=== PATIENT | female | born 1985 | race Caucasian/White ===

== ENCOUNTER 2020-12-30 06:33 | Day surgery (SDC) | payer OTHER ==
[~2020-12-30] VITALS: Ht 160 cm; Wt 106.8 kg
[~2020-12-30 06:33] MED LIST: CITA20 PO; CYCL10 PO; IBUP600 PO; Norco 5-325 Ta1 EACH PO; ZYRTEC10 M2 PO
[2020-12-30] MEDS ORDERED: ALDACTONE100 MG PO (07:22)
--- NOTE | 2020-12-30 07:35 | NUR ---
SECOND IV STARTED BY JERRY STUDENT NURSE. Ambulatory in Day Surgery History, Chart, Medications and Allergies reviewed before start of procedure.Patient confirms NPO status and agrees with scheduled surgery. Patient reports completing Chlorhexadine shower X2 prior to admission to hospital.Surgical site prepped with 2% Chlorhexidine cloth wipe. Lungs clear T/O to Auscultation.
--- NOTE | 2020-12-30 16:58 | NUR ---
SHIFT SUMMARY PT A&OX4, VSS/RA, S/P MELISSA TOTAL LAP HYSTER, 4 DERMABOND LAP SITES, CDI, ABD BINDER ON. PAIN MANAGED WITH 5 MG PERCOCET & TORADOL. DUSTIN PO CLEAR LIQUID DIET, DENIES N&V. AMBULATING HALLWAYS, UP TO CHAIR. VELASCO PATENT & DRAINING YELLOW URINE, STAT LOCK ON, OFF FLOOR. WILL REPORT TO ONCOMING NOC RN.
--- NOTE | 2020-12-31 03:48 | NUR ---
HAIRCUTTER SUMMARY A/OX4, AMBULATING HALLWAY THIS EVENING. ABD BINDER IN PLACE, SURGICAL INCISIONS C/D WITHOUT SIGNS OF REDNESS OR DISCHARGE. SCANT AMOUNT OF VAGINAL BLEEDING IN LUCIA PAD. PLAN TO D/C VELASCO AT 0500. VSS, NO ACUTE CHANGES AT THIS TIME. BED IN LOWEST POSITION WITH CALL LIGHT IN REACH. WILL CONTINUE TO MONITOR AND REPORT TO ONCOMING RN.
[2020-12-31 04:55] LABS: BASOPHILS ABSOLUTE AUTO 0.02 K/mm3 (0.00-0.23); BASOPHILS PERCENT AUTO 0 % (0-2); EOSINOPHILS ABSOLUTE AUTO 0.01 K/mm3 (0.00-0.68); EOSINOPHILS PERCENT AUTO 0 % (0-6); Hematocrit 31.5 % (33.0-51.0); Hemoglobin 9.8 g/dL (11.5-16.0); IMMATURE GRAN ABSOLUTE AUTO 0.06 K/mm3 (0.00-0.10); IMMATURE GRAN PERCENT AUTO 0 % (0-1); LYMPHOCYTES ABSOLUTE AUTO 1.99 K/mm3 (0.84-5.20); LYMPHOCYTES PERCENT AUTO 14 % (21-46); MONOCYTES ABSOLUTE AUTO 1.15 K/mm3 (0.16-1.47); MONOCYTES PERCENT AUTO 8 % (4-13); Mean Corpuscular HGB 23.7 pg (26.0-34.0); Mean Corpuscular HGB Conc 31.1 g/dL (31.5-36.5); Mean Corpuscular Volume 76 fL (80-100); Mean Platelet Volume 10.2 fL (9.1-12.4); NEUTROPHILS ABSOLUTE AUTO 11.41 K/mm3 (1.96-9.15); NEUTROPHILS PERCENT AUTO 78 % (41-73); Platelet Count 286 K/mm3 (150-400); RDW Coefficient Variation 16.7 % (11.7-14.2); RDW Standard Deviation 46.2 fL (35.1-46.3); Red Blood Cell Count 4.13 M/mm3 (3.80-5.20); White Blood Cell Count 14.64 K/mm3 (4.00-11.30)
[2020-12-31] MEDS ORDERED: Percocet 5-3251 EACH PO (11:54)
[2020-12-31] MEDS ORDERED: PROM25 PO (11:55)
--- NOTE | 2020-12-31 12:25 | NUR ---
SHIFT SUMMARY PT A&OX4, VSS, TOLERATING PO, VOIDING, PAIN MANAGED WITH 5 MG PERCOCET, AMBULATING INDEPENDENTLY; LEFT FLOOR VIA WC WITH CLOTH BALER TO GO HOME WITH SISTER, WITH ALL PERSONAL POSSESSIONS INCLUDING DC PACKET AND 1 NARC SCRIPT. DC INSTRUCTIONS PROVIDED. PT REP UNDERSTANDING THOSE INSTRUCTIONS. IV DC'D.
== END 2020-12-31 12:00 | disposition home or self-care (01) ==
LOC: ORSCMMR 06:33 → SURS 11:25
PROVIDERS: Obstetrics & Gynecology
PROC: 8E0W4CZ Robotic Assisted Procedure of Trunk Region, Percutaneous Endoscopic Approach (ICD-10-PCS; principal; 2020-12-30 07:30)
PROC: 0UT94ZZ Resection of Uterus, Percutaneous Endoscopic Approach (ICD-10-PCS; principal; 2020-12-30 07:30)
PROC: 0UT74ZZ Resection of Bilateral Fallopian Tubes, Percutaneous Endoscopic Approach (ICD-10-PCS; principal; 2020-12-30 07:30)
DX: N92.0 Excessive and frequent menstruation with regular cycle (principal); N85.2 Hypertrophy of uterus; N94.6 Dysmenorrhea, unspecified; D25.0 Submucous leiomyoma of uterus; E66.01 Morbid (severe) obesity due to excess calories; Z68.41 Body mass index [BMI] 40.0-44.9, adult
CPT/HCPCS: 58573; S2900; 36415; 85025; 88307; A9270; J0690; J1100; J1885; J2250; J2270; J2405; J2704; J3010; J7120

== ENCOUNTER 2021-09-09 07:25 | Day surgery (SDC) | payer OTHER ==
[~2021-09-09] VITALS: Ht 160 cm; Wt 102.1 kg
[~2021-09-09 07:25] MED LIST changes: +ALDACTONE100 MG PO; +PROM25 PO; +Percocet 5-3251 EACH PO
--- NOTE | 2021-09-09 09:45 | NUR ---
09/09/21 0945 Radha Lau PROCEDURE: INCISIONAL HERNIA REPAIR WITH MESH. CLEAN PROCEDURE.
--- NOTE | 2021-09-09 10:20 | NUR ---
09/09/21 1020 DARRIAN GARCIA STARTED WITH 10L O2 VIA REBREATHER O2 WAS 94%. DECREASED TO 5L FOR TRIAL RUN.
== END 2021-09-09 11:30 | disposition home or self-care (01) ==
LOC: ORSCSDS 07:25
PROVIDERS: Surgery
PROC: 0WUF0JZ Supplement Abdominal Wall with Synthetic Substitute, Open Approach (ICD-10-PCS; principal; 2021-09-09 08:30)
DX: K43.2 Incisional hernia without obstruction or gangrene (principal); E66.01 Morbid (severe) obesity due to excess calories; Z68.41 Body mass index [BMI] 40.0-44.9, adult; Z79.899 Other long term (current) drug therapy
CPT/HCPCS: A9270; C1781; J0690; J1100; J1885; J2250; J2405; J2704; J2765; J3010; J7120